=== PATIENT | female | born 1965 | race African-American/Black ===

== ENCOUNTER 2018-12-19 16:01 | Emergency (ER) | payer MEDICAID, MEDICARE ==
[2018-12-19] MEDS ORDERED: HYDROMORPHONE HCL INJ/PF 2 MG/ML AMPULE IV ONE ×2 (16:21→19:45)
[2018-12-19] MEDS ORDERED: ONDANSETRON HCL INJ/PF 4 MG/2 ML SDV IV ONE ×2 (16:24→19:45)
--- NOTE | 2018-12-19 16:24 | ER Document Report ---
ED General - General Chief Complaint: Shortness Of Breath Stated Complaint: DIFFICULTY BREATHING Time Seen by Provider: 12/19/18 16:04 TRAVEL OUTSIDE OF THE [place] IN LAST 30 DAYS: No - HPI Notes: Patient is a 53-year-old female that presents to the emergency department for chief complaint of shortness of breath, cough, and back pain. Patient states she had sudden onset of dyspnea and pain between her shoulder blades radiating down to her tailbone today. She is from out of town and states she drove 3-4 hours in the car today. She denies history of aortic issues or pulmonary embolism. 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 Patient also has sickle cell anemia and has not had a blood transfusion since 2009 or 2010 she believes. She reports that she has had a few episodes of emesis and some mild persistent nausea as well as chills. She denies any chest pain, abdominal pain, dysuria and urinary frequency. Past Medical History: Sickle cell anemia, hypertension Past Surgical History: Left lung transplant Social History: Reviewed in chart Family History: Reviewed and noncontributory for presenting illness Allergies: Reviewed, see documented allergy list. REVIEW OF SYSTEMS: CONSTITUTIONAL : No fever No chills No diaphoresis No recent illness EENT: No vision changes No congestion No sore throat CARDIOVASCULAR: No chest pain No palpitations RESPIRATORY: No shortness of breath No cough No difficulty breathing GASTROINTESTINAL: No abdominal pain No nausea No vomiting No diarrhea GENITOURINARY: No dysuria No hematuria No difficulty urinating MUSCULOSKELETAL: No back pain No leg pain No arm pain SKIN: No rashes No lesions LYMPHATIC: No swollen, enlarged glands. NEUROLOGICAL: No lightheadedness No headache No weakness No paresthesias PSYCHIATRIC: No anxiety No depression PHYSICAL EXAMINATION: Vital signs reviewed, nursing noted reviewed. GENERAL: Well-appearing, well-nourished and in no acute distress. HEAD: Atraumatic, normocephalic. EYES: Eyes appear normal, extraocular movements intact, sclera anicteric, conjunctiva are normal. ENT: nares patent, oropharynx clear without exudates. Moist mucous membranes. NECK: Normal range of motion, supple without lymphadenopathy LUNGS: Breath sounds clear to auscultation bilaterally and equal. No wheezes rales or rhonchi. HEART: Regular rate and rhythm without murmurs ABDOMEN: Soft, nontender, normoactive bowel sounds. No rebound, guarding, or rigidity. No masses appreciated. EXTREMITIES: Nontender, good range of motion, no pitting or edema. NEUROLOGICAL: No focal neurological deficits. Moves all extremities spontaneously Motor and sensory grossly intact on exam. PSYCH: Normal mood, normal affect. SKIN: Warm, Dry, normal turgor, no rashes or lesions noted on exposed skin - Related Data Allergies/Adverse Reactions: No Known Allergies Allergy (Verified 12/19/18 16:45) Past Medical History - Social History Smoking Status: Unknown if Ever Smoked Family History: Reviewed & Not Pertinent Physical Exam - Vital signs Vitals: Pulse Ox 97 12/19/18 16:05 Course - Re-evaluation Re-evalutation: 12/19/18 21:31 Laboratory 12/19/18 12/19/18 12/19/18 16:14 16:14 16:14 WBC 7.2 RBC 4.77 Hgb 13.1 Hct 39.7 MCV 83 MCH 27.4 MCHC 32.9 RDW 15.9 H Plt Count 249 Seg Neutrophils % 76.7 Lymphocytes % 12.9 L Monocytes % 8.5 Eosinophils % 1.3 Basophils % 0.6 Absolute Neutrophils 5.5 Absolute Lymphocytes 0.9 Absolute Monocytes 0.6 Absolute Eosinophils 0.1 Absolute Basophils 0.0 Retic Count (auto) 0.85 Absolute Retic 0.041 Sodium 144.2 Potassium 4.1 Chloride 108 H Carbon Dioxide 27 Anion Gap 9 BUN 22 H Creatinine 2.09 H Est GFR ( Amer) 30 L Est GFR (Non-Af Amer) 25 L Glucose 118 H Lactic Acid Calcium 9.5 Total Bilirubin 0.6 Direct Bilirubin 0.3 Neonat Total Bilirubin Not Reportable Neonat Direct Bilirubin Not Reportable Neonat Indirect Bili Not Reportable AST 18 ALT 13 Alkaline Phosphatase 67 Troponin I < 0.012 NT-Pro-B Natriuret Pep 331 Total Protein 7.7 Albumin 4.3 12/19/18 16:14 WBC RBC Hgb Hct MCV MCH MCHC RDW Plt Count Seg Neutrophils % Lymphocytes % Monocytes % Eosinophils % Basophils % Absolute Neutrophils Absolute Lymphocytes Absolute Monocytes Absolute Eosinophils Absolute Basophils Retic Count (auto) Absolute Retic Sodium Potassium Chloride Carbon Dioxide Anion Gap BUN Creatinine Est GFR ( Amer) Est GFR (Non-Af Amer) Glucose Lactic Acid 0.8 Calcium Total Bilirubin Direct Bilirubin Neonat Total Bilirubin Neonat Direct Bilirubin Neonat Indirect Bili AST ALT Alkaline Phosphatase Troponin I NT-Pro-B Natriuret Pep Total Protein Albumin Chest X-Ray 12/19/18 16:05 IMPRESSION: Diffuse right-sided pneumonia with volume loss. Evidence for prior right-sided surgery. Possible focal pneumonia in the left upper lobe. Volume loss in the right lung is worrisome despite previous surgical changes. Question of tumor. 12/19/18 21:35 Vitals were reviewed. Nursing notes reviewed. Patient was in no acute respiratory distress. Prior to patient's results returning she requested to leave the hospital. She did not wish to sign out AGAINST MEDICAL ADVICE pap erwork. I was unable to come immediately to bedside to discuss patient's desire to leave with her and she did not wish to wait for me to come discuss her care. Patient eloped I did attempt at. 9:37 PM to contact the patient to discuss the fact that her x-ray shows pneumonia. There was no answer. - Vital Signs Vital signs: Temp Pulse Resp BP Pulse Ox 98.1 F 23 H 149/85 H 99 12/19/18 16:06 12/19/18 17:03 12/19/18 17:03 12/19/18 19:00 - Laboratory Result Diagrams: 12/19/18 16:14 12/19/18 16:14 Laboratory results interpreted by me: 12/19/18 12/19/18 16:14 16:14 RDW 15.9 H Lymphocytes % 12.9 L Chloride 108 H BUN 22 H Creatinine 2.09 H Est GFR ( Amer) 30 L Est GFR (Non-Af Amer) 25 L Glucose 118 H Discharge - Discharge Clinical Impression: Pneumonia Qualifiers: Pneumonia type: due to unspecified organism Laterality: bilateral Lung location: unspecified part of lung Qualified Code(s): J18.9 - Pneumonia, unspecified organism Disposition: ELOPED
[2018-12-19 16:56] LABS: ABSOLUTE EOSINOPHILS # (AUTO) 0.1 10^3/uL (0.0-0.6); ABSOLUTE LYMPHOCYTES (AUTO) 0.9 10^3/uL (0.5-4.7); ABSOLUTE MONOCYTES (AUTO) 0.6 10^3/uL (0.1-1.4); ABSOLUTE NEUT (AUTO) 5.5 10^3/uL (1.7-8.2); ABSOLUTE RETICS # 0.041 10^6/uL (0.028-0.122); BASOPHILS % (AUTO) 0.6 % (0-2); EOSINOPHILS % (AUTO) 1.3 % (0-6); HEMATOCRIT 39.7 % (36.0-47.0); HEMOGLOBIN 13.1 g/dL (12.0-15.5); LYMPHOCYTES % (AUTO) 12.9 % (13-45); MEAN CORPUSCULAR HEMOGLOBIN 27.4 pg (27.0-33.4); MEAN CORPUSCULAR HGB CONC 32.9 g/dL (32.0-36.0); MEAN CORPUSCULAR VOLUME 83 fl (80-97); MONOCYTES % (AUTO) 8.5 % (3-13); PLATELET COUNT 249 10^3/uL (150-450); RED BLOOD COUNT 4.77 10^6/uL (3.72-5.28); RED CELL DISTRIBUTION WIDTH 15.9 % (11.5-14.0); RETICULOCYTE COUNT (AUTO) 0.85 % (0.66-2.85); SEGMENTED NEUTROPHILS % (AUTO) 76.7 % (42-78); TOTAL CELLS COUNTED % (AUTO) 100 %; WHITE BLOOD COUNT 7.2 10^3/uL (4.0-10.5)
--- NOTE | 2018-12-19 17:03 | RADIOLOGY REPORT (SQ) ---
EXAM DESCRIPTION: CHEST SINGLE VIEW COMPLETED DATE/TIME: 12/19/2018 4:51 pm REASON FOR STUDY: dyspnea COMPARISON: None. EXAM PARAMETERS: NUMBER OF VIEWS: One view. TECHNIQUE: Single frontal radiographic view of the chest acquired. RADIATION DOSE: NA LIMITATIONS: None. FINDINGS: LUNGS AND PLEURA: Extensive parenchymal opacity in the right lung with midline shift to th e right. Surgical clips in the right lung. Vague density in the left upper lobe. No effusions. MEDIASTINUM AND HILAR STRUCTURES: No masses. Contour normal. HEART AND VASCULAR STRUCTURES: Heart normal in size. Normal vasculature. BONES: No acute findings. HARDWARE: None in the chest. OTHER: No other significant finding. IMPRESSION: Diffuse right-sided pneumonia with volume loss. Evidence for prior right-sided surgery. Possible focal pneumonia in the left upper lobe. Volume loss in the right lung is worrisome despite previous surgical changes. Question of tumor. TECHNICAL DOCUMENTATION: JOB ID: [id number] [employer]- All Rights Reserved Reading location - IP/workstation name: [email or web address]
--- NOTE | 2018-12-19 17:08 | EKG REPORT ---
SEVERITY:- ABNORMAL ECG - SINUS RHYTHM BIATRIAL ABNORMALITIES NONSPECIFIC T ABNORMALITIES, LATERAL LEADS : Confirmed by: Frederick Ceballos MD 19-Dec-2018 17:07:56
[2018-12-19 17:09] LABS: ALANINE AMINOTRANSFERASE 13 U/L (9-52); ALBUMIN 4.3 g/dL (3.5-5.0); ALKALINE PHOSPHATASE 67 U/L (38-126); ANION GAP 9 (5-19); ASPARTATE AMINO TRANSFERASE 18 U/L (14-36); BILIRUBIN,DIRECT 0.3 mg/dL (0.0-0.4); BILIRUBIN,TOTAL 0.6 mg/dL (0.2-1.3); BLOOD UREA NITROGEN 22 mg/dL (7-20); CALCIUM 9.5 mg/dL (8.4-10.2); CARBON DIOXIDE 27 mmol/L (22-30); CHLORIDE 108 mmol/L (98-107); GLUCOSE 118 mg/dL (75-110); POTASSIUM 4.1 mmol/L (3.6-5.0); SODIUM 144.2 mmol/L (137-145); TOTAL PROTEIN 7.7 g/dL (6.3-8.2)
[2018-12-19 17:21] LABS: NT PRO BNP 331 pg/mL (5-900); TROPONIN I < 0.012 ng/mL
[2018-12-19 20:34] VITALS: BP 149/85
== END 2018-12-19 20:36 | disposition left against medical advice (07) ==
LOC: ER 16:01
DX: J18.9 Pneumonia, unspecified organism (principal); R11.2 Nausea with vomiting, unspecified; I10 Essential (primary) hypertension; Z94.2 Lung transplant status; Z53.20 Procedure and treatment not carried out because of patient's decision for unspecified reasons
CPT/HCPCS: 36415; 71045; 80053; 83605; 83880; 84484; 85025; 85045; 87040; 87077; 87186; 93005; 93010; 99281